=== PATIENT | female | born 1965 | race African-American/Black ===

== ENCOUNTER 2017-02-10 16:19 | Emergency (ER) | payer MEDICAID, OTHER ==
[~2017-02-10] VITALS: Ht 165.1 cm; Wt 134.0 kg
[2017-02-11] MEDS ORDERED: KETOROLAC 30MG/ML VIAL IV STA (00:12)
[2017-02-11] MEDS ORDERED: SODIUM CHLORIDE 0.9% 1,000 ML IV ONE (00:12)
[2017-02-11] MEDS ORDERED: ONDANSETRON HCL 4MG/2ML VIAL IV STA (00:12)
[2017-02-11] MEDS ORDERED: FAMOTIDINE 20MG/2ML VIAL IV STA (00:12)
[2017-02-11 00:31] LABS: BASOPHILS % 0.7 % (0.0-2.0); HEMOGLOBIN. 11.2 g/dL (12.0-16.0); LYMPHOCYTES % 23.4 % (20.0-50.0); MONOCYTES % 11.4 % (2.0-8.0); NEUTROPHILS % 62.5 % (40.0-76.0); PLATELET 366 x1000/uL (130-400); RED BLOOD CELL COUNT 4.14 mill/uL (4.2-5.4); RED CELL DISTRIBUTION WIDTH 15.9 % (11.6-14.6)
[2017-02-11 00:36] LABS: CHLORIDE 107 mEq/L (98-107)
[2017-02-11 00:37] LABS: PROTHROMBIN TIME 10.1 sec (9.4-11.6)
[2017-02-11 00:38] LABS: CLARITY URINE CLOUDY (CLEAR); COLOR URINE YELLOW (YELLOW); GLUCOSE URINE NEGATIVE (NEGATIVE); KETONES URINE NEGATIVE (NEGATIVE); LEUKOCYTE ESTERASE URINE 2+ (NEGATIVE); NITRITE URINE NEGATIVE (NEGATIVE); OCCULT BLOOD URINE 3+ (NEGATIVE); PROTEIN URINE 1+ (NEGATIVE); SPECIFIC GRAVITY URINE 1.023 (1.005-1.030); UROBILINOGEN URINE 0.2 E.U./dL (0.2-1.0)
[2017-02-11 00:45] LABS: CARBON DIOXIDE 26 mEq/L (21-32)
[2017-02-11] MEDS ORDERED: MORPHINE SULFATE 4 MG/ML CPJ (NOT FOR IM USE) IV ONE (01:45)
[2017-02-11] MEDS ORDERED: CEFTRIAXONE SODIUM 1 G/VIAL IM ONE (01:45)
[2017-02-11] MEDS ORDERED: MORPHINE SULFATE 10 MG/ML CPJ IV ONE (02:00)
[2017-02-11] MEDS ORDERED: MORPHINE SULFATE 10 MG/ML CPJ IV SCH (02:00)
[2017-02-11] MEDS ORDERED: HYDROCODONE/APAP 7.5/325MG 1 TAB TABLET PO ONE (07:00)
[2017-02-11 08:03] VITALS: BP 133/78
== END 2017-02-11 08:14 | disposition home or self-care (01) ==
LOC: ER 16:19
DX: M54.9 Dorsalgia, unspecified (principal); N13.2 Hydronephrosis with renal and ureteral calculous obstruction; K80.20 Calculus of gallbladder without cholecystitis without obstruction; R79.1 Abnormal coagulation profile; K57.90 Diverticulosis of intestine, part unspecified, without perforation or abscess without bleeding
CPT/HCPCS: 36415; 74176; 80053; 81001; 83690; 85025; 85610; 93005; 96361; 96372; 96374; 96375; 99285; J0696; J1885; J2270; J2405; J3490; J7030; Z7610